=== PATIENT | male | born 2000 | race American Indian/Alaskan Native ===

== ENCOUNTER 2021-12-28 22:15 | Emergency (ER) | payer OTHER ==
[2021-12-29] MEDS ORDERED: PANTOPRAZOLE 40 MG TAB PO ONE (00:19)
[2021-12-29] MEDS ORDERED: DICYCLOMINE 20 MG TAB PO ONE (00:19)
[2021-12-29] MEDS ORDERED: ONDANSETRON 4 MG ODT TAB PO ONE (00:19)
--- NOTE | 2021-12-29 01:15 | Emergency Department Report ---
ED Abdominal Pain HPI - General Chief Complaint: Abdominal Pain Stated Complaint: GENERAL SYMPTOMS Source: patient Mode of arrival: Ambulatory Limitations: No Limitations - History of Present Illness Initial Comments: Patient is a 21-year-old -[place] male with a history of GERD who presents to the ED with complaint of acute exacerbation of his chronic epigastric pain that radiates to the substernal chest wall for the last 2 weeks, worse in the last 1 week with nausea and vomiting. Patient states that the symptoms are intermittent and worse with certain types of foods. Patient states that in the last 2 days this epigastric pain has persisted despite taking Pepcid as needed. Patient also states that symptoms are worsened with persistent nausea and vomiting. Patient states that the symptoms are especially worse at night after eating. Patient denies dizziness, syncope, chest pain, shortness of breath, fever, chills, cough, diarrhea, dysuria, urinary frequency and urgency, diaphoresis, sore throat and headache. MD Complaint: abdominal pain (Epigastric pain), other (Nausea and vomiting) -: Gradual, week(s) (2) Location: epigastric Radiation: chest Migration to: no migration Severity: moderate Severity scale (0 -10): 4 Quality: aching, burning Consistency: intermittent Improves With: nothing Worsens With: eating, vomiting Context: other (History of chronic GERD) Associated Symptoms: nausea, vomiting. denies: diarrhea, fever, constipation, hematemesis, hematochezia, melena, hematuria Treatments Prior to Arrival: antacids - Related Data Previous Rx's Medication Instructions Recorded Last Taken Type Dicyclomine [Bentyl] 20 mg PO Q6H PRN #24 tablet 12/29/21 Unknown Rx Famotidine [Pepcid] 20 mg PO BID #60 tablet 12/29/21 Unknown Rx Omeprazole 40 mg PO DAILY #60 tab 12/29/21 Unknown Rx Ondansetron [Zofran Odt] 4 mg PO Q6HR PRN #20 tab.rapdis 12/29/21 Unknown Rx Allergies Allergy/AdvReac Type Severity Reaction Status Date / Time No Known Allergies Allergy Unverified 12/28/21 23:21 ED Review of Systems ROS: Stated complaint: GENERAL SYMPTOMS Other details as noted in HPI Constitutional: denies: chills, fever Eyes: denies: eye pain, eye discharge, vision change ENT: denies: ear pain, throat pain Respiratory: denies: cough, shortness of breath, wheezing Cardiovascular: denies: chest pain, palpitations Endocrine: no symptoms reported Gastrointestinal: abdominal pain (EPIGASTRIC), nausea, vomiting. denies: diarrhea Genitourinary: denies: urgency, dysuria Musculoskeletal: denies: back pain, joint swelling, arthralgia Skin: denies: rash, lesions Neurological: denies: headache, weakness, paresthesias Psychiatric: denies: anxiety, depression Hematological/Lymphatic: denies: easy bleeding, easy bruising ED Past Medical Hx - Past Medical History Previous Medical History?: Yes Hx GERD: Yes - Surgical History Past Surgical History?: No - Medications Home Medications: Home Medications Medication Instructions Recorded Confirmed Last Taken Type Dicyclomine [Bentyl] 20 mg PO Q6H PRN #24 tablet 12/29/21 Unknown Rx Famotidine [Pepcid] 20 mg PO BID #60 tablet 12/29/21 Unknown Rx Omeprazole 40 mg PO DAILY #60 tab 12/29/21 Unknown Rx Ondansetron [Zofran Odt] 4 mg PO Q6HR PRN #20 tab.rapdis 12/29/21 Unknown Rx ED Physical Exam - General Limitations: No Limitations General appearance: alert, in no apparent distress - Head Head exam: Present: atraumatic, normocephalic, normal inspection - Eye Eye exam: Present: normal appearance, PERRL, EOMI Pupils: Present: normal accommodation - ENT ENT exam: Present: normal exam, normal orophraynx, mucous membranes moist, TM's normal bilaterally, normal external ear exam - Neck Neck exam: Present: normal inspection, full ROM - Respiratory Respiratory exam: Present: normal lung sounds bilaterally. Absent: respiratory distress, wheezes, rales, rhonchi, chest wall tenderness, accessory muscle use, decreased breath sounds, prolonged expiratory - Cardiovascular Cardiovascular Exam: Present: normal rhythm, bradycardia, normal heart sounds. Absent: systolic murmur, diastolic murmur, rubs, gallop - GI/Abdominal GI/Abdominal exam: Present: soft, tenderness (Palpable mild epigastric tenderness), normal bowel sounds. Absent: guarding, rebound, hyperactive bowel sounds, hypoactive bowel sounds - Extremities Exam Extremities exam: Present: normal inspection, full ROM, normal capillary refill - Back Exam Back exam: Present: normal inspection, full ROM. Absent: tenderness, CVA tenderness (R), CVA tenderness (L), muscle spasm, paraspinal tenderness, vertebral tenderness - Neurological Exam Neurological exam: Present: alert, oriented X3, CN II-XII intact, normal gait, reflexes normal - Psychiatric Psychiatric exam: Present: normal affect, normal mood - Skin Skin exam: Present: warm, dry, intact, normal color. Absent: rash ED Course Vital Signs 12/28/21 23:20 Temperature 98.1 F Pulse Rate 56 L Respiratory 16 Rate Blood Pressure 148/84 O2 Sat by Pulse 99 Oximetry ED Medical Decision Making - Medical Decision Making This is a 21-year-old -[place] male with a history of GERD who presents to the ED with complaint of acute exacerbation of his chronic epigastric pain that radiates to the substernal chest wall for the last 2 weeks, worse in the last 1 week with nausea and vomiting. Patient states that the symptoms are intermittent and worse with certain types of foods. Patient states that in the last 2 days this epigastric pain has persisted despite taking Pepcid as needed. Patient also states that symptoms are worsened with persistent nausea and vomiting. Patient states that the symptoms are especially worse at night after eating. In the ED, patient is alert and oriented x3 and is not in any distress. Patient is hemodynamically stable. Patient was treated for nausea and vomiting, also treated with antacids in the ED. On reevaluation, patient symptoms resolved with medication. Patient will discharge home on pain medications, antiemetics and antacids and advised to follow-up with his primary care physician in 5 to 7 days for reevaluation or return to the ED immediately if symptoms get worse. - Differential Diagnosis GERD; gastritis; gastric ulcer; gastroenteritis; Critical care attestation.: If time is entered above; I have spent that time in minutes in the direct care of this critically ill patient, excluding procedure time. ED Disposition Clinical Impression: Acute epigastric pain, Nausea and vomiting in adult patient GERD (gastroesophageal reflux disease) Qualifiers: Esophagitis presence: esophagitis presence not specified Qualified Code(s): K21.9 - Gastro-esophageal reflux disease without esophagitis Disposition: HOME / SELF CARE / HOMELESS Is pt being admited?: No Does the pt Need Aspirin: No Condition: Stable Instructions: Heartburn, [id number], Abdominal Pain, Adult, [id number], Nausea and Vomiting, Adult, [id number], Food Choices for Gastroesophageal Reflux Disease, Adult, [id number], Gastroesophageal Reflux Disease, Adult, [id number] Additional Instructions: Your symptoms are likely due to uncomplicated GERD. Therefore take medication with food, drink plenty of fluids and follow-up with your primary care physician in 7 to 10 days for reevaluation. Return to the ED immediately if symptoms get worse. Prescriptions: Dicyclomine [Bentyl] 20 mg PO Q6H PRN #24 tablet PRN Reason: Abdominal pain Omeprazole 40 mg PO DAILY #60 tab Famotidine [Pepcid] 20 mg PO BID #60 tablet Ondansetron [Zofran Odt] 4 mg PO Q6HR PRN #20 tab.rapdis PRN Reason: Nausea Referrals: [facility] [Provider Group] - 3-5 Days Time of Disposition: 01:16 Print Language: FRISIAN
[2021-12-29 01:31] VITALS: BP 142/86
== END 2021-12-29 01:31 | disposition home or self-care (01) ==
LOC: ED 22:15
DX: K21.9 Gastro-esophageal reflux disease without esophagitis (principal); Z79.899 Other long term (current) drug therapy
CPT/HCPCS: 99282; J3490; Q0162